=== PATIENT | male | born 1975 | race Caucasian/White ===

== ENCOUNTER 2017-04-25 21:39 | Emergency (ER) | payer SELFPAY ==
[~2017-04-25] VITALS: Ht 193 cm; Wt 77.3 kg
[~2017-04-25 21:39] MED LIST: PRILOTC PO; PRINIVIL10 MG PO; PROMETHAZINE12.5 M5 PO; ZOFRAN 4MG T4 MG/TAB PO
[2017-04-25 21:41] VITALS: TEMP 98
[2017-04-25] MEDS ORDERED: ZESTORETIC 25 M1 TAB PO (21:44)
[2017-04-25] MEDS ORDERED: XANAX 0.5MG0.5 MG PO (21:44)
[2017-04-25 22:13] LABS: BASO % 0.4 % (0.0-2.0); EOS % 0.3 % (0-4.0); GRAN # 7.5 (1.4-6.5); GRAN % 67.5 % (42.2-75.2); HEMATOCRIT 44.6 % (42.0-52.0); HEMOGLOBIN 15.9 g/dl (13.5-18.0); LYMPH % 26.6 % (20.0-51.0); MEAN CELL VOLUME 88 fl (80.0-100.0); MEAN CORPUSCULAR HEMOGLOBIN 32 pg (27.0-31.0); MEAN CORPUSCULAR HGB CONC 36 g/dl (33.0-37.0); MEAN PLATELET VOLUME 9.2 fl (7.4-10.4); MONO # 0.5 (0.1-0.6); MONO % 4.8 % (1.7-9.3); PLATELET COUNT 299 K/mm3 (130-400); RED BLOOD COUNT 5.05 M/mm3 (4.20-5.60); REDCELL DISTRIBUTION WIDTH-CV 12.6 % (11.5-14.5); WHITE BLOOD COUNT 11.2 K/mm3 (4.8-10.8)
[2017-04-25 22:29] LABS: ADJUSTED CALCIUM 9.5 mg/dL (8.4-10.2); ALBUMIN 4.8 gm/dL (3.5-5.0); BILIRUBIN,TOTAL 0.5 mg/dL (0.0-1.0); CALCIUM 10.1 mg/dL (8.4-10.2); CREATININE, serum 0.78 mg/dL (0.66-1.25); POTASSIUM 3.6 mmol/L (3.4-5.0); TOTAL PROTEIN 7.8 gm/dL (6.4-8.2)
[2017-04-25] MEDS ORDERED: PHENERGAN 25 TA25 MG PO (22:48)
[2017-04-26 00:27] VITALS: BP 159/102; PULSE 82
== END 2017-04-26 00:28 | disposition home or self-care (01) ==
LOC: COL.ER 21:39
PROVIDERS: Emergency Medicine
DX: F11.23 Opioid dependence with withdrawal (principal); E86.9 Volume depletion, unspecified
CPT/HCPCS: J1885; J2060; J2405; J2550; J7030

== ENCOUNTER 2017-05-02 17:13 | Emergency (ER) | payer SELFPAY ==
[~2017-05-02] VITALS: Ht 182.9 cm; Wt 75.0 kg
[~2017-05-02 17:13] MED LIST changes: +PHENERGAN 25 TA25 MG PO; +XANAX 0.5MG0.5 MG PO; +ZESTORETIC 25 M1 TAB PO
[2017-05-02 17:24] VITALS: TEMP 99.2
[2017-05-02] MEDS ORDERED: ZOFRAN8 MG PO (17:27)
[2017-05-02 18:06] LABS: BASO % 0.2 % (0.0-2.0); EOS # 0.1 (0.0-0.7); EOS % 0.4 % (0-4.0); GRAN % 66.1 % (42.2-75.2); HEMATOCRIT 44.1 % (42.0-52.0); HEMOGLOBIN 16.1 g/dl (13.5-18.0); LYMPH # 3.5 (1.2-3.4); MEAN CELL VOLUME 88 fl (80.0-100.0); MEAN CORPUSCULAR HEMOGLOBIN 32 pg (27.0-31.0); MEAN CORPUSCULAR HGB CONC 37 g/dl (33.0-37.0); MEAN PLATELET VOLUME 9.5 fl (7.4-10.4); PLATELET COUNT 320 K/mm3 (130-400); RED BLOOD COUNT 5.03 M/mm3 (4.20-5.60); REDCELL DISTRIBUTION WIDTH-CV 12.2 % (11.5-14.5); WHITE BLOOD COUNT 13.6 K/mm3 (4.8-10.8)
[2017-05-02 18:26] LABS: ADJUSTED CALCIUM 9.6 mg/dL (8.4-10.2); ALANINE AMINOTRANSFERASE 21 U/L (21-72); ALBUMIN 4.7 gm/dL (3.5-5.0); ALKALINE PHOSPHATASE 86 U/L (50-136); ANION GAP 17 mmol/L (7-16); BILIRUBIN,TOTAL 0.7 mg/dL (0.0-1.0); BLOOD UREA NITROGEN 18 mg/dL (9-20); CALCIUM 10.2 mg/dL (8.4-10.2); CARBON DIOXIDE 21 mmol/L (22-30); CHLORIDE 97 mmol/L (98-107); GLUCOSE 109 mg/dL (74-106); LIPASE 87 U/L (23-300); POTASSIUM 3.1 mmol/L (3.4-5.0); SODIUM 135 mmol/L (137-145); TOTAL PROTEIN 7.9 gm/dL (6.4-8.2)
[2017-05-02 18:27] LABS: C-REACTIVE PROTEIN < 0.5 mg/dL (0.0-0.9)
[2017-05-02 19:47] LABS: PH 5 (5-8); SQUAMOUS EPITHELIAL 0-2 /hpf; URINE APPEARANCE Clear; URINE BACTERIA None Seen /hpf; URINE BILIRUBIN Negative (NEGATIVE); URINE BLOOD Negative (NEGATIVE); URINE COLOR Yellow; URINE GLUCOSE Negative (NEGATIVE); URINE KETONE Negative (NEGATIVE); URINE RBC 0-2 /hpf; URINE UROBILINOGEN Negative (NEGATIVE); URINE WBC 0-2 /hpf
[2017-05-02] MEDS ORDERED: CARAFATE S1 GM/10 ML PO (20:46)
[2017-05-02] MEDS ORDERED: K-DUR 10 MEQ T10 MEQ PO (20:47)
[2017-05-02 21:31] VITALS: BP 134/91; PULSE 94
== END 2017-05-02 21:31 | disposition home or self-care (01) ==
LOC: COL.ER 17:13
PROVIDERS: Emergency Medicine
DX: R10.10 Upper abdominal pain, unspecified (principal); F11.23 Opioid dependence with withdrawal
CPT/HCPCS: C9113; J1200; J1630; J3475; J7030; Q9967

== ENCOUNTER → 2021-02-24 | Outpatient (CLI) | payer MEDICAID ==
[~2021-02-24] MED LIST changes: +ATIVAN 0.50.5 MG/TAB PO; +CARAFATE S1 GM/10 ML PO; +CLEOCIN HCL300 MG PO; +CORDARONE200 MG/TAB PO; +DOXYCYCLINE 10100 MG PO; +ELIQUIS 5MG PO; +INCRUSE EL62.5 MCG/A IH; +K-DUR 10 MEQ T10 MEQ PO; +LIDODERM 5% PATC1 EA TP; +MASON NATURAL2000 IU PO; +NORCO 325 MG-51 TAB PO; +PREDNISONE20 MG PO; +PREDNISONE50 MG PO; +PROAIR HFA0.09 MG/AC IH; +ULTRAM 50MG TAB50 MG PO; +VITAMIN D31000 I1 PO; +ZESTRIL 20MG TA20 MG PO; +ZOFRAN8 MG PO; +ZYRTEC 10MG10 MG PO
== END ==
LOC: COL.RAD 12:56
DX: J18.1 Lobar pneumonia, unspecified organism (principal); R04.2 Hemoptysis; R91.8 Other nonspecific abnormal finding of lung field; R59.0 Localized enlarged lymph nodes
CPT/HCPCS: Q9967

== ENCOUNTER 2021-03-05 06:39 | Outpatient (CLI) | payer MEDICAID ==
[2021-03-05] VITALS (15 sets, daily range): BP systolic 114–143; BP diastolic 64–97; PULSE 95–117
[~2021-03-05] VITALS: Ht 182.9 cm; Wt 82.2 kg
[~2021-03-05 06:39] MED LIST changes: -ATIVAN 0.50.5 MG/TAB PO; -CLEOCIN HCL300 MG PO; -CORDARONE200 MG/TAB PO; -DOXYCYCLINE 10100 MG PO; -ELIQUIS 5MG PO; -INCRUSE EL62.5 MCG/A IH; -LIDODERM 5% PATC1 EA TP; -MASON NATURAL2000 IU PO; -NORCO 325 MG-51 TAB PO; -PREDNISONE20 MG PO; -PREDNISONE50 MG PO; -PROAIR HFA0.09 MG/AC IH; -VITAMIN D31000 I1 PO; -ZYRTEC 10MG10 MG PO
--- NOTE | 2021-03-05 08:30 | NUR ---
Dr Samuel into room and talks with pt. Procedure explained to pt.
--- NOTE | 2021-03-05 08:38 | NUR ---
Specimen obtained by Dr Samuel and placed in formalin. Specimen labeled.
--- NOTE | 2021-03-05 11:13 | NUR ---
Chest xray completed,will away for results.
--- NOTE | 2021-03-05 11:51 | NUR ---
Discharge instructions given to pt.pt verbalizes understanding.INT removed,catheter tip intact.Pt escorted out via wheelchair by Dain Wells.
== END 2021-03-05 15:25 ==
LOC: COL.RAD 06:39
DX: J93.9 Pneumothorax, unspecified (principal); R91.1 Solitary pulmonary nodule; F17.210 Nicotine dependence, cigarettes, uncomplicated
CPT/HCPCS: 32106

== ENCOUNTER 2021-04-19 09:38 | Emergency (ER) | payer MEDICAID ==
[~2021-04-19] VITALS: Ht 182.9 cm; Wt 79.5 kg
[2021-04-19 09:46] VITALS: TEMP 98.4
[2021-04-19 10:36] LABS: COLLECTION METHOD CLEAN CATCH
[2021-04-19 10:38] LABS: BASO % 0.5 % (0.0-2.0); EOS % 0.5 % (0-4.0); GRAN # 3.3 (1.4-6.5); GRAN % 76.2 % (42.2-75.2); HEMATOCRIT 37.7 % (42.0-52.0); HEMOGLOBIN 12.7 g/dl (13.5-18.0); LYMPH # 0.6 (1.2-3.4); LYMPH % 14.1 % (20.0-51.0); MEAN CELL VOLUME 85 fl (80.0-100.0); MEAN CORPUSCULAR HEMOGLOBIN 29 pg (27.0-31.0); MEAN CORPUSCULAR HGB CONC 34 g/dl (33.0-37.0); MEAN PLATELET VOLUME 8.6 fl (7.4-10.4); MONO # 0.4 (0.1-0.6); MONO % 8.5 % (1.7-9.3); PLATELET COUNT 176 K/mm3 (130-400); RED BLOOD COUNT 4.46 M/mm3 (4.20-5.60); REDCELL DISTRIBUTION WIDTH-CV 15.7 % (11.5-14.5)
[2021-04-19 10:52] LABS: MUCOUS Present /lpf; PH 5 (5-8); SQUAMOUS EPITHELIAL 0-2 /hpf; URINE APPEARANCE Hazy; URINE BACTERIA None Seen /hpf; URINE BILIRUBIN Negative (NEGATIVE); URINE BLOOD Negative (NEGATIVE); URINE COLOR Yellow; URINE GLUCOSE Negative (NEGATIVE); URINE KETONE 1+ (NEGATIVE); URINE LEUKOCYTE ESTERASE Negative (NEGATIVE); URINE NITRATE Negative (NEGATIVE); URINE PROTEIN(semi-quant) Negative (NEGATIVE); URINE RBC 0-2 /hpf; URINE UROBILINOGEN Negative (NEGATIVE)
[2021-04-19 10:55] LABS: ALANINE AMINOTRANSFERASE 82 U/L (4-49); ALBUMIN 3.7 gm/dL (3.5-5.0); ALKALINE PHOSPHATASE 224 U/L (50-136); ANION GAP 7 mmol/L (7-16); AST,SGOT 80 U/L (15-37); BILIRUBIN,TOTAL 0.2 mg/dL (0.0-1.0); BLOOD UREA NITROGEN 4 mg/dL (9-20); CALCIUM 9.1 mg/dL (8.4-10.2); CARBON DIOXIDE 25 mmol/L (22-30); CHLORIDE 96 mmol/L (98-107); GLUCOSE 96 mg/dL (74-106); SODIUM 128 mmol/L (137-145); TOTAL PROTEIN 7.4 gm/dL (6.4-8.2)
[2021-04-19 11:09] LABS: TROPONIN-I < 0.012 ng/mL (0.000-0.035)
[2021-04-19 11:19] LABS: HIV 1/2 Antibodies Non-Reactive; HIV-1p24 Antigen Non-Reactive
[2021-04-19] MEDS ORDERED: PREDNISONE50 MG PO (11:50)
[2021-04-19] MEDS ORDERED: DOXYCYCLINE 10100 MG PO (11:51)
[2021-04-19 12:01] VITALS: BP 148/107; PULSE 107
[2021-04-21 23:50] LABS: SPOTTED FEVER IGG ANTIBODY <1:64 (<1:64)
== END 2021-04-19 12:05 | disposition home or self-care (01) ==
LOC: COL.ER 09:38
PROVIDERS: Emergency Medicine
DX: J18.9 Pneumonia, unspecified organism (principal); R21 Rash and other nonspecific skin eruption; D72.819 Decreased white blood cell count, unspecified; F17.200 Nicotine dependence, unspecified, uncomplicated; Z20.822 Contact with and (suspected) exposure to COVID-19
CPT/HCPCS: 86780; J0696; J2930

== ENCOUNTER 2021-05-24 19:36 | Inpatient (IN) | payer MEDICAID ==
[2021-05-24] VITALS (15 sets, daily range): BP systolic 133; BP diastolic 109; PULSE 151; TEMP 97.7; O2SAT 99–100
[~2021-05-24] VITALS: Ht 185.4 cm; Wt 80.4 kg
[~2021-05-24 19:36] MED LIST changes: +DOXYCYCLINE 10100 MG PO; +PREDNISONE50 MG PO
[2021-05-24 19:52] LABS: BASO % 0.1 % (0.0-2.0); GRAN # 6.1 (1.4-6.5); GRAN % 74.3 % (42.2-75.2); HEMATOCRIT 40.5 % (42.0-52.0); HEMOGLOBIN 13.4 g/dl (13.5-18.0); LYMPH # 1.3 (1.2-3.4); LYMPH % 15.5 % (20.0-51.0); MEAN CELL VOLUME 89 fl (80.0-100.0); MEAN CORPUSCULAR HEMOGLOBIN 30 pg (27.0-31.0); MEAN CORPUSCULAR HGB CONC 33 g/dl (33.0-37.0); MEAN PLATELET VOLUME 8.9 fl (7.4-10.4); MONO # 0.8 (0.1-0.6); MONO % 9.2 % (1.7-9.3); PLATELET COUNT 305 K/mm3 (130-400); RED BLOOD COUNT 4.55 M/mm3 (4.20-5.60); REDCELL DISTRIBUTION WIDTH-CV 17.9 % (11.5-14.5)
[2021-05-24 20:05] LABS: ALANINE AMINOTRANSFERASE 57 U/L (4-49); ALBUMIN 3.9 gm/dL (3.5-5.0); ALKALINE PHOSPHATASE 146 U/L (50-136); ANION GAP 14 mmol/L (7-16); AST,SGOT 60 U/L (15-37); BILIRUBIN,TOTAL 0.3 mg/dL (0.0-1.0); BLOOD UREA NITROGEN 8 mg/dL (9-20); CALCIUM 9.3 mg/dL (8.4-10.2); CARBON DIOXIDE 20 mmol/L (22-30); CHLORIDE 94 mmol/L (98-107); CREATININE, serum 0.65 (0.66-1.25); GLUCOSE 196 mg/dL (74-106); SODIUM 128 mmol/L (137-145); TOTAL PROTEIN 7.7 gm/dL (6.4-8.2)
[2021-05-24 20:20] LABS: CREATINE KINASE 28 U/L (55-170); LIPASE 110 U/L (23-300)
[2021-05-24 20:21] LABS: TROPONIN-I < 0.012 ng/mL (0.000-0.035)
[2021-05-24] MEDS ORDERED: VITAMIN D31000 I1 PO (21:44)
[2021-05-24] MEDS ORDERED: PREDNISONE20 MG PO (21:44)
[2021-05-24] MEDS ORDERED: ZYRTEC 10MG10 MG PO (21:45)
[2021-05-24] MEDS ORDERED: MASON NATURAL2000 IU PO (21:45)
--- NOTE | 2021-05-24 22:08 | NUR ---
Received report from ED nurse, Ana.
[2021-05-24 22:12] LABS: MAGNESIUM 1.7 mg/dL (1.6-2.3); PHOSPHOROUS 4.3 mg/dL (2.5-4.5)
--- NOTE | 2021-05-24 22:54 | NUR ---
Patient arrives to ICU room 6 via ED stretcher. Patient is able to ambulate independently to ICU bed. Patient is alert and oriented. HR is irregular and 160s upon arrival. BP 133/109. All other vitals within normal limits. Patient denies any pain or discomfort. He does however, report feeling slightly dizzy. Patient denies feeling short of breath. He is somewhat tachypneic but does not appear to be in any sort of respiratory distress or discomfort. A red splotchy rash is noted to his entire body. No other skin issues noted. He arrives with an 18G peripheral IV to the RAC, receiving amiodarone at 1mg/min. He also has a 20G peripheral to the LAC, receiving heparin at 1500 units/hr. Saloni is aware of patient's arrival. Bed in lowest position, call light within reach. All alarms on. No further needs noted.
--- NOTE | 2021-05-24 22:54 | NUR ---
Patient's belongings include street clothes, a cell phone, glasses, and a wallet without nix. He denies having dentures, partials, plates, hearing aids, or removable jewelry on his person. Refuses use of safe when offered. Belongings at patient's bedside per his request.
[2021-05-24 23:55] LABS: TSH w REFLEX 0.596 uIU/mL (0.465-4.680)
[2021-05-25] VITALS (649 sets, daily range): BP systolic 114–170; BP diastolic 71–113; PULSE 80–141; TEMP 97.5–98.1; O2SAT 90–100
[2021-05-25 06:22] LABS: EOS % 0.1 % (0-4.0); GRAN # 5.4 (1.4-6.5); GRAN % 78.2 % (42.2-75.2); HEMOGLOBIN 12.2 g/dl (13.5-18.0); MEAN CELL VOLUME 90 fl (80.0-100.0); MEAN CORPUSCULAR HEMOGLOBIN 30 pg (27.0-31.0); MEAN CORPUSCULAR HGB CONC 33 g/dl (33.0-37.0); MEAN PLATELET VOLUME 8.6 fl (7.4-10.4); MONO # 0.4 (0.1-0.6); PLATELET COUNT 273 K/mm3 (130-400); RED BLOOD COUNT 4.08 M/mm3 (4.20-5.60); REDCELL DISTRIBUTION WIDTH-CV 18.4 % (11.5-14.5)
[2021-05-25 06:25] LABS: HEMATOCRIT 36.9 % (42.0-52.0)
[2021-05-25 06:43] LABS: CALCIUM 8.6 mg/dL (8.4-10.2); CREATININE, serum 0.54 (0.66-1.25); POTASSIUM 4.5 mmol/L (3.4-5.0)
[2021-05-25 10:04] LABS: LACTATE DEHYDROGENASE 416 U/L (313-618)
[2021-05-25 10:08] LABS: C-REACTIVE PROTEIN < 0.5 mg/dL (0.0-0.9)
--- NOTE | 2021-05-25 11:35 | NUR ---
Patient self-converted to . Dr. Kinsey at bedside performing a KEITH. Cardioversion not needed at this time.
--- NOTE | 2021-05-25 12:28 | NUR ---
Discussed plan of care with DENIS Gambino. Will continue IV amiodarone for 24 hrs. Will switch to PO this evening and can stop heparin drip and start eliquis. Also discussed patient's elvevated BP's. Ranging 150-160 systolic and 100-110 diastolic. DENIS Gambino will review the chart at this time.
--- NOTE | 2021-05-25 14:09 | NUR ---
Vancomycin Initial Dosing Pharmacy Note Ordering provider: Teodora Lakhani MD Indication/duration: PNA, 7 days LABS: SCr 0.54, CrCl~163, GFR 166 Recommendation: Will give Vancomycin 1.5 gm IV x1 loading dose, then Vancomycin 1 gm IV q8h. Pharmacy will continue to closely monitor and check a Vancomycin trough on 05/26/21 prior to 4th total dose. Loading dose: 1.5 grams Maintenance dose: 1 gram every 8 hours Trough goal: 15-20 ug/mL
--- NOTE | 2021-05-25 19:10 | NUR ---
Received report from LESLIE Jerome.
--- NOTE | 2021-05-25 20:00 | NUR ---
Patient resting quietly in bed watching television. All vitals within normal limits. Denies pain, discomfort, or shortness of breath. Bed in lowest position, call light within reach. All alarms on. No further needs noted.
--- NOTE | 2021-05-25 23:15 | NUR ---
Report given to LESLIE Lugo.
--- NOTE | 2021-05-25 23:31 | NUR ---
Patient transported via wheelchair to room 342. Tolerated well. Contact made with receiving nurseParish.
[2021-05-26] VITALS (10 sets, daily range): BP systolic 94–177; BP diastolic 63–115; PULSE 77–108; TEMP 97.5–98
[2021-05-26 00:31] LABS: COMPLEMENT-C4 23 mg/dL (15-53)
--- NOTE | 2021-05-26 03:24 | NUR ---
Pt got transfered to surgical unit. currently on airbone precaution. BP is eleveted. Hydralazine was given. IV fluid on hold nicho was notified. Will continue to monitor.
--- NOTE | 2021-05-26 07:25 | NUR ---
Report received from Parish. Pt. on airborne precautions. Pt. OOB in chair. This RN waved to patient, through window on door. Pt. waved back. Will go assess pt. this AM when N95 Mask is obtained for pt.'s precautions.
[2021-05-26 07:54] LABS: EOS % 0.1 % (0-4.0); GRAN # 6.5 (1.4-6.5); HEMOGLOBIN 11.5 g/dl (13.5-18.0); LYMPH # 1.5 (1.2-3.4); LYMPH % 16.2 % (20.0-51.0); MEAN CELL VOLUME 92 fl (80.0-100.0); MEAN CORPUSCULAR HEMOGLOBIN 30 pg (27.0-31.0); MEAN CORPUSCULAR HGB CONC 33 g/dl (33.0-37.0); MONO % 10.7 % (1.7-9.3); PLATELET COUNT 252 K/mm3 (130-400); RED BLOOD COUNT 3.84 M/mm3 (4.20-5.60); REDCELL DISTRIBUTION WIDTH-CV 18.4 % (11.5-14.5)
[2021-05-26 07:56] LABS: HEMATOCRIT 35.3 % (42.0-52.0)
[2021-05-26 08:06] LABS: CALCIUM 8.9 mg/dL (8.4-10.2); CREATININE, serum 0.66 (0.66-1.25); MAGNESIUM 2.3 mg/dL (1.6-2.3); POTASSIUM 3.5 mmol/L (3.4-5.0)
--- NOTE | 2021-05-26 09:00 | NUR ---
Pt. progressing w/ plan of care. Pt. reports he had a rough night and he is nervous with the plan of care. This RN offered therapeutic communication and reassured patient he would be in the loop with the plan for the day. BP elevated, BP meds to be given per order. Call light in reach, pt. reports he has been getting out of bed on his own and reports he has been steady on his feet.
--- NOTE | 2021-05-26 13:31 | NUR ---
Pt. progressing with plan of care. Pt to get an epsom salt sitz bath per CHANDRAKANT Naylor order. Pt reports his rectum is having pain. Pt. was given hydrocortisone suppository with no effect. Abx administered per order, vanco to be given, reviewed with Pharmacist Gunjan to continue scheduled dose after new vanco trough has resulted. Plan for pt. to have a biopsy of the lung tomorrow at 1030 AM. LESLIE Cole notified this RN to get a consent prepared so the patient can have procedure tomorrow.
--- NOTE | 2021-05-26 17:07 | NUR ---
Patient is in isolation to rule out TB. Worker contacted Shmuel Wheeler, who is patient's life partner that has moved out of his house, however, continues to be patient's support person. Patient has been independent with his activities of daily living and his primary care provider is Dr Quintero. Patient does not have any advance directives and worker offered assistance with completion if desired by patient. Patient plans to return home. Worker will follow patient's care and assist with securing a safe discharge plan.
[2021-05-26 17:15] LABS: TB GOLD INTERPRETATION Indeterminate (Negative)
--- NOTE | 2021-05-26 19:05 | NUR ---
Pt. angry his dinner was cold. Charge nurse Lynn notified as well as correctional food service supervisor.
[2021-05-27] VITALS (19 sets, daily range): BP systolic 126–166; BP diastolic 84–113; PULSE 76–127; TEMP 97.5–98.1
--- NOTE | 2021-05-27 01:56 | NUR ---
Pt has been pretty grumpy all evening. He was mad about his food being cold.I offered him a sandwish, he agreed to eat. Pt said , he has visual hallucination and has been trying to go to sleep but he feels like he is falling of the bed. He also compalined about his rash is coming back and his maouth is burning. I called Corine, she ut a order for benadryl and miracle mouth wash. I later called Corine for pt hallucination, She put an other order of quetiapine 25 mg po. Will continue to monitor.
--- NOTE | 2021-05-27 07:00 | NUR ---
Report received from LESLIE Lugo. Will resume care of pt
[2021-05-27 08:04] LABS: GRAN % 61.5 % (42.2-75.2); HEMOGLOBIN 10.4 g/dl (13.5-18.0); LYMPH # 1.7 (1.2-3.4); LYMPH % 26.1 % (20.0-51.0); MEAN CELL VOLUME 92 fl (80.0-100.0); MEAN CORPUSCULAR HEMOGLOBIN 31 pg (27.0-31.0); MEAN CORPUSCULAR HGB CONC 33 g/dl (33.0-37.0); MEAN PLATELET VOLUME 9.3 fl (7.4-10.4); MONO # 0.8 (0.1-0.6); MONO % 11.8 % (1.7-9.3); PLATELET COUNT 228 K/mm3 (130-400); REDCELL DISTRIBUTION WIDTH-CV 18.2 % (11.5-14.5)
--- NOTE | 2021-05-27 08:04 | NUR ---
Assessment hcarted. pT c/o pain to rectum at 6/10 that is intermittent. pT c/o worsening rash to whole body, red everywhere and picture shown on phone of rash at its worst in past and its very red, raised and blistery. Pt orally has white spots in mouth, back is most reddened, skin is not warm or raised just diffusely red. Pt lungs are coarse with ins/exp wheezing in upper lobes. Pt reports smokes 2 packs/day. INT to RW and RA/C. Coughing intermittently with scant amoutn of white/brown sputum. Discussed detox protocol and ativan coverage. Will discuss with director pt request to talk to cured meats supervisor about complaints of care, will address with hospitalist request for pain meds, will continue to monitor.
[2021-05-27 08:17] LABS: CALCIUM 8.4 mg/dL (8.4-10.2); CREATININE, serum 0.73 (0.66-1.25); POTASSIUM 3.4 mmol/L (3.4-5.0)
[2021-05-27 08:28] LABS: ALBUMIN 2.9 gm/dL (3.5-5.0); BILIRUBIN,TOTAL 0.2 mg/dL (0.0-1.0); TOTAL PROTEIN 5.9 gm/dL (6.4-8.2)
[2021-05-27 08:38] LABS: HEMATOCRIT 31.3 % (42.0-52.0)
--- NOTE | 2021-05-27 13:45 | NUR ---
Pt transported per bed to ct. Pt in protective mask and cover over pt. Nurse and tech in full PPE with N95 mask. Pt onto ct table in prone position. Monitors applied.
--- NOTE | 2021-05-27 14:00 | NUR ---
Dr Wright into room to talk with pt. Full ppe with N95 masks used by all staff in ct scan room.
--- NOTE | 2021-05-27 14:11 | NUR ---
Specimens obtained by Dr Wright and placed in formalin. Specimen labeled.
--- NOTE | 2021-05-27 18:42 | NUR ---
Pt has done well today, remains on CIWA protocol, vitals have improved this evening and pt states he is feeling much better. Resting in bed, sleeping soundly upon entry this evening for the first time this shift. PRN pain meds given for generalized pain from rash and rectum. Family at bedside this afternoon and confirmed with Optical Engineering Manager this was okay to have visitor in [place] isolation. INT to RA/C removed d/t bleeding but INT to RH is doing fine. Pt denies need,s ate supper well, anticipating bronchoscopy on tuesday. [facility] who will resume care.
--- NOTE | 2021-05-27 20:23 | NUR ---
PT IN BED, IS ALERT AND ORIENTED X4. HAS IV ANTIBIOTIC THAT IS COMPLETE, FLUSHED AT THIS TIME, SITE TO RT HAND LEAKING. MEDICATED WITH ATIVAN 1MG IVP FOR CIWA SCORE 6. INDEPENDENT IN ROOM. LUNGS COARSE. BANDAID PRESENT TO LEFT BACK FROM LUNG BX TODAY. FADING RASH OVER ENTIRE BODY.
[2021-05-27 22:40] LABS: C-ANCA 23 U/mL (0-99)
--- NOTE | 2021-05-27 22:40 | NUR ---
DC'D IV SITE FROM RT HAND, STARTED #2O INSYTE TO RFA, IV ATIVAN GIVEN 0.5MG FOR CIWA SCORE 5. VANCOMYCIN INFUSING TO NEW IV SITE WITHOUT REDNESS OR SWELLING.
[2021-05-28] VITALS (12 sets, daily range): BP systolic 122–151; BP diastolic 87–101; PULSE 70–102; TEMP 97.1–98.5
--- NOTE | 2021-05-28 02:27 | NUR ---
PT CIWA SCORE 6, MEDICATED WITH ATIVAN 1MG IVP, CLEOCIN IV ANTIBIOTIC STARTED AT THIS TIME.
--- NOTE | 2021-05-28 06:00 | NUR ---
PT REPORTS RESTING WELL. CIWA SCORE 2. IV ANTIBIOTIC INFUSING TO RIGHT FOREARM WITHOUT PROBLEM.
[2021-05-28 07:21] LABS: EOS % 0.3 % (0-4.0); GRAN # 3.5 (1.4-6.5); GRAN % 58.6 % (42.2-75.2); HEMOGLOBIN 10.6 g/dl (13.5-18.0); LYMPH # 1.9 (1.2-3.4); LYMPH % 30.9 % (20.0-51.0); MEAN CELL VOLUME 91 fl (80.0-100.0); MEAN CORPUSCULAR HEMOGLOBIN 30 pg (27.0-31.0); MEAN CORPUSCULAR HGB CONC 33 g/dl (33.0-37.0); MEAN PLATELET VOLUME 9.2 fl (7.4-10.4); MONO # 0.6 (0.1-0.6); MONO % 9.5 % (1.7-9.3); PLATELET COUNT 222 K/mm3 (130-400); REDCELL DISTRIBUTION WIDTH-CV 17.9 % (11.5-14.5)
[2021-05-28 07:25] LABS: CALCIUM 8.2 mg/dL (8.4-10.2); CREATININE, serum 0.7 (0.66-1.25); POTASSIUM 3.4 mmol/L (3.4-5.0)
--- NOTE | 2021-05-28 18:33 | NUR ---
Pt has had uneventful day, A&O, independent in room, on room air. Breathing is even and unlabored, pt denies SOB, states he has had minimal cough with minimal sputum, none visualized by this nurse. Abx given per mar throughout day. Pt c/o of some pain to Lt sd from biopsy 05/27/21, pain medication given per dec. RFA IV infiltrated, removed, new site started to LWR, good blood return and flushes well. K+ replaced per protocol. Pt has good appetite and tolerating PO well. No further needs expressed. Precautions followed per order.
--- NOTE | 2021-05-28 19:50 | NUR ---
PT REPORTS BACK PAIN, TRAMADOL GIVEN. HAS IV ANTIBIOTIC INFUSING TO LEFT WRIST WITHOUT REDNESS OR SWELLING. LUNGS SOUNDS IMPROVED TONIGHT. INDEPENDENT IN ROOM. THIN YELLOW SPUTUM COUGHED UP. SIGNS CONSENT FOR BRONCHOSCOPY IN AM.
[2021-05-29] VITALS (16 sets, daily range): BP systolic 112–148; BP diastolic 79–101; PULSE 64–94; TEMP 97.8–98.5
--- NOTE | 2021-05-29 00:30 | NUR ---
CIWA SCORE 2-3. PT WAS GIVEN MELATONIN AT HS FOR SLEEP. IV SITE FLUSHED WELL.
--- NOTE | 2021-05-29 04:00 | NUR ---
IV ANTIBIOTICS CONNECTED AND INFUSING TO LEFT WRIST SITE WITHOUT REDNESS OR SWELLING. REPORTS BACK PAIN. CIWA SCORE 2.
--- NOTE | 2021-05-29 04:31 | NUR ---
MEDICATED WITH TRAMDOL 50MG PO FOR BACK PAIN. IV VANCO INFUSING WITHOUT PROBLEM.
--- NOTE | 2021-05-29 05:45 | NUR ---
PT IV SITE TO LEFT WRIST PAINFUL. DC'D. NEW SITE STARTED TO RIGHT FOREARM, #20 INSYTE ON SECOND ATTEMPT. PATIENT NERVOUS ABOUT BRONCHOSCOPY TODAY, REASSURANCE PROVIDED.
[2021-05-29 07:00] LABS: BASO % 0.2 % (0.0-2.0); EOS % 0.5 % (0-4.0); GRAN # 3.7 (1.4-6.5); GRAN % 58.6 % (42.2-75.2); HEMOGLOBIN 10.7 g/dl (13.5-18.0); LYMPH # 1.7 (1.2-3.4); LYMPH % 26.6 % (20.0-51.0); MEAN CELL VOLUME 91 fl (80.0-100.0); MEAN CORPUSCULAR HEMOGLOBIN 30 pg (27.0-31.0); MEAN CORPUSCULAR HGB CONC 33 g/dl (33.0-37.0); MEAN PLATELET VOLUME 8.8 fl (7.4-10.4); MONO # 0.8 (0.1-0.6); MONO % 13.1 % (1.7-9.3); PLATELET COUNT 202 K/mm3 (130-400); RED BLOOD COUNT 3.57 M/mm3 (4.20-5.60); REDCELL DISTRIBUTION WIDTH-CV 17.7 % (11.5-14.5)
[2021-05-29 07:07] LABS: HEMATOCRIT 32.4 % (42.0-52.0)
[2021-05-29 07:16] LABS: CALCIUM 8.8 mg/dL (8.4-10.2); CREATININE, serum 0.7 (0.66-1.25); POTASSIUM 3.7 mmol/L (3.4-5.0)
--- NOTE | 2021-05-29 08:00 | NUR ---
PATIENT ALERT AND ORIENTED X4. STATES HE IS FEELING BETTER AND SLEPT GOOD LAST NIGHT. PATIENT ABOUT TO GO DOWN FOR BRONCOSCOPY. PATIENT NPO AND HAS 20G IV TO THE RIGHT FOREARM INT. PATIENT ON POTASSIUM PROTOCOL AND AIRBORNE PRECAUTIONS FOR PENDING TB RESULTS. NO FURTHER NEEDS AT THIS TIME. HEAD TO TOE ASSESSMENT COMPLETE. CALL LIGHT WITHIN REACH.
--- NOTE | 2021-05-29 09:10 | NUR ---
DR. HUTTON CALLED TO RESTART LOVENOX AT 10AM.
--- NOTE | 2021-05-29 09:15 | NUR ---
PATIENT RETURNED TO FLOOR AFTER BRONCOSCOPY. REPORT RECIEVED. VSS. LOVENOX TO START AGAIN AT 10AM PER DOCTORS ORDERS. POTASSIUM IS 3.7 AND WILL REQUIRE REPLACEMENT PER PROTOCOL. PATIENT HAS LR GOING TO RIGHT FOREARM IV. PATIENT DENIES PAIN OR N/V. NO FURTHER NEEDS AT THIS TIME. CALL LIGHT WITHIN REACH.
--- NOTE | 2021-05-29 14:25 | NUR ---
PATIENT LAYING IN BED AFTER EATING LUNCH. PATIENT DENIES PAIN OR FURTHER NEEDS AT THIS TIME. CALL LIGHT WITHIN REACH.
--- NOTE | 2021-05-29 20:00 | NUR ---
Report received, assume care for shift production associate. Assessment complete. VS stable. A&Ox3. Denies pain/nausea/shortness of breath. Tele reports NSR. Has tolerated PO. Voiding without difficulty. Currently on detox protocol but not scoring. States he would like ativan at bedtime due to anxiety. Will request new order for PRN anxiety med per hospitalist. Plan of care discussed for this shift to include HS meds/antibiotics/calling for questions/concerns/increased pain. Verbalizes understanding/denies needs. Call light in reach. Will monitor.
--- NOTE | 2021-05-29 21:30 | NUR ---
Ativan given per pt request for anxiety. Tramadol given per dr order for pain rated 6/10 to back-described as ache. Will continue to monitor.
[2021-05-30 03:53] VITALS: BP 120/75; PULSE 96; TEMP 98.2
--- NOTE | 2021-05-30 04:12 | NUR ---
Tramadol given at this time for pain rated 6/10 on pain scale to chest/"lungs".
--- NOTE | 2021-05-30 06:33 | NUR ---
Rested well this shift. Received tramadol x2 for pain in back. Tele reports SR. Received ativan x1 for anxiety. No real complaints over this shift. Call light in reach. Will monitor.
[2021-05-30 06:47] LABS: MEAN CELL VOLUME 92 fl (80.0-100.0); MEAN CORPUSCULAR HEMOGLOBIN 30 pg (27.0-31.0); MEAN CORPUSCULAR HGB CONC 33 g/dl (33.0-37.0); MEAN PLATELET VOLUME 9.1 fl (7.4-10.4); PLATELET COUNT 196 K/mm3 (130-400); RED BLOOD COUNT 3.31 M/mm3 (4.20-5.60); REDCELL DISTRIBUTION WIDTH-CV 17.6 % (11.5-14.5)
[2021-05-30 06:52] LABS: CALCIUM 8.6 mg/dL (8.4-10.2); CREATININE, serum 0.69 (0.66-1.25); POTASSIUM 3.7 mmol/L (3.4-5.0)
[2021-05-30 07:02] LABS: HEMATOCRIT 30.4 % (42.0-52.0)
--- NOTE | 2021-05-30 08:20 | NUR ---
Patient sitting up in bed. Alert & oriented. Reports pain in lungs from "lung washing" Ultram manages pain. Breakfast delivered. Denies nausea. Denies issues using the restroom, reports being regular. Vss, tele on. I did call pharmacy & discussed lovenox & eliquis orders-only eliquis given, lovenox held. Will continue to monitor.
[2021-05-30 09:50] VITALS: BP 131/93; PULSE 86; TEMP 98.2
--- NOTE | 2021-05-30 10:15 | NUR ---
Patient resting in bed. Hygiene supplies provided, denies the need for assist. Ultram for pain per orders. Spoke with hosptalist about patient, plan of care reviewed. Will continue to monitor.
[2021-05-30 13:35] VITALS: BP 123/82; PULSE 81; TEMP 98.7
[2021-05-30 14:05] LABS: BLASTOMYCES ID Negative (Negative); HISTOPLASMA ID Negative (Negative); HISTOPLASMA MYCELIAL Negative (Negative); HISTOPLASMA YEAST Negative (Negative)
--- NOTE | 2021-05-30 14:33 | NUR ---
Patient at bedside. Patient request anxiety medication. He is upset about his food tray being late, then upset about not having martínez & mustard. Patient upset his ice is melted. He reports feeling like he is in custodial. I spoke to Dr.Poturu JUGN ativan ordered. Patient hoping to discharge home on Tuesday. Will monitor.
[2021-05-30 16:00] VITALS: BP 117/81; PULSE 79; TEMP 98.1
--- NOTE | 2021-05-30 18:11 | NUR ---
Patient off isolation precautions. loading rack supervisor reviewed with Genna and with negative covid swab patient able to be off TB precautions. Patient so thankful for new room in 322, large room with a view. His mood is much improved. He did well with dinner. Denies cough. Will monitor. Patient aware he needs to be wearing mask when staff is in room and agreeable.
--- NOTE | 2021-05-30 19:02 | NUR ---
Iv to lfa infiltrated. Attempted x2 to restart, failed attempt. Elizabeth RN to resume cares & start new IV.
--- NOTE | 2021-05-30 19:24 | NUR ---
Report received, assumed care for observer gravity prospecting. Assessment complete. A&Ox3. Denies pain/nausea/shortness of breath. VS stable. No IV access-has been attempted several times-will see if casting house laborer would attempt. Noted to have a rash to trunk/back/arms bilat. Based on photograph on patients phone this rash has much improved but still visible. All lung andersen with wheezes. Denies cough. In much better spirits in new room. Plan of care discussed for this shift to include HS meds/IV restart/antibiotics/pain control/calling for questions/concerns. Verbalizes understanding/denies needs. Call light in reach. Will monitor.
[2021-05-30 20:00] VITALS: BP 143/93; PULSE 72; TEMP 97.8
[2021-05-31] VITALS (7 sets, daily range): BP systolic 116–137; BP diastolic 70–99; PULSE 58–77; TEMP 97.5–98.6
--- NOTE | 2021-05-31 04:04 | NUR ---
This nurse took over care for patient around 2229. Patient given PRN Ultram once for this nurse for pain to back. Continues to receive IV ABXs per orders. Voices no questions, needs, or concerns at this time.
[2021-05-31 09:10] LABS: BASO % 0.2 % (0.0-2.0); EOS % 0.3 % (0-4.0); GRAN # 6.6 (1.4-6.5); GRAN % 71.1 % (42.2-75.2); HEMOGLOBIN 10.8 g/dl (13.5-18.0); LYMPH # 1.6 (1.2-3.4); LYMPH % 17.1 % (20.0-51.0); MEAN CELL VOLUME 92 fl (80.0-100.0); MEAN CORPUSCULAR HEMOGLOBIN 30 pg (27.0-31.0); MEAN CORPUSCULAR HGB CONC 33 g/dl (33.0-37.0); MEAN PLATELET VOLUME 9.5 fl (7.4-10.4); MONO % 10.7 % (1.7-9.3); PLATELET COUNT 252 K/mm3 (130-400); RED BLOOD COUNT 3.58 M/mm3 (4.20-5.60); REDCELL DISTRIBUTION WIDTH-CV 17.7 % (11.5-14.5)
[2021-05-31 09:17] LABS: HEMATOCRIT 32.9 % (42.0-52.0)
[2021-05-31 09:26] LABS: CALCIUM 9.2 mg/dL (8.4-10.2); CREATININE, serum 0.65 (0.66-1.25); POTASSIUM 3.8 mmol/L (3.4-5.0)
[2021-05-31 12:12] LABS: COLLECTION METHOD CLEAN CATCH
[2021-05-31 12:17] LABS: PH 7 (5-8); SQUAMOUS EPITHELIAL None Seen /hpf; URINE APPEARANCE Clear; URINE BACTERIA None Seen /hpf; URINE BILIRUBIN Negative (NEGATIVE); URINE BLOOD Negative (NEGATIVE); URINE COLOR Yellow; URINE GLUCOSE Negative (NEGATIVE); URINE KETONE Negative (NEGATIVE); URINE LEUKOCYTE ESTERASE Negative (NEGATIVE); URINE NITRATE Negative (NEGATIVE); URINE PROTEIN(semi-quant) Negative (NEGATIVE); URINE RBC 0-2 /hpf; URINE UROBILINOGEN Negative (NEGATIVE); URINE WBC 0-2 /hpf
[2021-05-31 16:14] LABS: COCCIDIOIDES AB IGG Negative (Negative); COCCIDIOIDES AB IGM Negative (Negative); COCCIDIOIDES CF Negative (Negative)
--- NOTE | 2021-05-31 19:42 | NUR ---
Patient resting in bed. Aury is controling pain much better. Patient eating well. Denies trouble using the restroom. His visited this afternoon. Iv antibioitcs as ordered today. Report to Beatriz nightnurse.
--- NOTE | 2021-05-31 21:45 | NUR ---
PT REPORTS PAINFUL IV SITE. DC'D SITE FROM RT FOREARM, ANGIOCATH INTACT. RESTARTED #20 INSYTE TO LEFT WRIST ON FIRST ATTEMPT. VANCOMYCIN CONNECTED AND INFUSING WITHOUT PROBLEM. PT IS ALERT AND ORIENTED X4. PAIN TO LEFT BACK CONTROLLED WITH NORCO.
--- NOTE | 2021-05-31 22:30 | NUR ---
PT ASKING FOR ATIVAN FOR NERVES. MEDICATED WITH 0.5MG PO AT THIS TIME. SL TO LEFT WRIST FLUSHES WELL. INDEPENDENT IN ROOM.
[2021-06-01 03:45] VITALS: BP 122/74; PULSE 57; TEMP 98.6
--- NOTE | 2021-06-01 03:52 | NUR ---
MEDICATED WITH NORCO 1 TAB FOR BACK PAIN, ALSO HAS TURNED ON KPAD.
[2021-06-01 07:05] LABS: BASO % 0.1 % (0.0-2.0); EOS % 0.4 % (0-4.0); GRAN # 4.6 (1.4-6.5); GRAN % 63.3 % (42.2-75.2); HEMOGLOBIN 10.3 g/dl (13.5-18.0); LYMPH # 1.7 (1.2-3.4); LYMPH % 23.4 % (20.0-51.0); MEAN CELL VOLUME 94 fl (80.0-100.0); MEAN CORPUSCULAR HEMOGLOBIN 30 pg (27.0-31.0); MEAN CORPUSCULAR HGB CONC 32 g/dl (33.0-37.0); MEAN PLATELET VOLUME 9.6 fl (7.4-10.4); MONO # 0.9 (0.1-0.6); PLATELET COUNT 252 K/mm3 (130-400); RED BLOOD COUNT 3.48 M/mm3 (4.20-5.60)
[2021-06-01 07:06] LABS: HEMATOCRIT 32.6 % (42.0-52.0)
[2021-06-01 07:11] VITALS: BP 126/80; PULSE 61; TEMP 97.6
[2021-06-01 07:27] LABS: CALCIUM 9.3 mg/dL (8.4-10.2); CREATININE, serum 0.73 (0.66-1.25); POTASSIUM 3.8 mmol/L (3.4-5.0)
--- NOTE | 2021-06-01 08:33 | NUR ---
Patient resting in bed. Tolerated breakfast. Request pain medication when next dose due for continued pain in left lung. Pain the same, not new. We reviewed medications, he is hoping to decrease his predisone dosage today. We discuss with doctor on rounds
[2021-06-01 11:47] VITALS: BP 120/62; PULSE 69; TEMP 97.7
--- NOTE | 2021-06-01 13:36 | NUR ---
Initial visit; Patient thanked [employer] for looking in on him and offering God's blessings and to keep him in her prayers.
[2021-06-01 16:22] VITALS: BP 130/78; PULSE 79; TEMP 98.9
--- NOTE | 2021-06-01 17:41 | NUR ---
Patient resting in bed. Wanting to shower tonight after his antibiotic dose. Spoke to today. Patient now just on cleocin. rounded today plans for 2 view chest xray ordered for am. [place] for pain management. Will continue to monitor & report off to nightnurse.
--- NOTE | 2021-06-01 20:00 | NUR ---
PT TAKES OWN SHOWER. SL TO LEFT WRIST INTACT. IS ALERT AND ORIENTED X4. INDEPENDENT IN ROOM.
[2021-06-01 20:38] VITALS: BP 126/78; PULSE 50; TEMP 97.8
--- NOTE | 2021-06-01 22:28 | NUR ---
PT MEDICATED WITH HS MEDS INCLUDING NORCO AND ATIVAN PO.
[2021-06-02] VITALS (7 sets, daily range): BP systolic 110–128; BP diastolic 64–86; PULSE 53–75; TEMP 97.5–98.1
--- NOTE | 2021-06-02 04:45 | NUR ---
PT HAVING PAIN IN HIS BACK. VERY UNHAPPY WITH THE DOSE OF NORCO HE IS PRESCRIBED. PT STATES "ITS FUCKING STUPID TO HAVE TO WAIT 6 HOURS FOR NEXT PAIN MEDICATIONS, IF THEY DON'T DO SOMETHING I WILL HAVE TO GO HOME AND SELF MEDICATE". PT WAS GIVEN NORCO 5/325 1 TAB AT THIS TIME.
[2021-06-02 06:07] LABS: BASO % 0.1 % (0.0-2.0); EOS % 0.2 % (0-4.0); GRAN # 5.5 (1.4-6.5); GRAN % 61.8 % (42.2-75.2); HEMOGLOBIN 11.2 g/dl (13.5-18.0); LYMPH # 2.5 (1.2-3.4); LYMPH % 27.8 % (20.0-51.0); MEAN CELL VOLUME 95 fl (80.0-100.0); MEAN CORPUSCULAR HEMOGLOBIN 30 pg (27.0-31.0); MEAN CORPUSCULAR HGB CONC 31 g/dl (33.0-37.0); MEAN PLATELET VOLUME 9.3 fl (7.4-10.4); MONO # 0.9 (0.1-0.6); MONO % 9.5 % (1.7-9.3); PLATELET COUNT 315 K/mm3 (130-400); RED BLOOD COUNT 3.78 M/mm3 (4.20-5.60); REDCELL DISTRIBUTION WIDTH-CV 17.9 % (11.5-14.5)
[2021-06-02 06:17] LABS: HEMATOCRIT 35.8 % (42.0-52.0)
[2021-06-02 06:21] LABS: CALCIUM 9.6 mg/dL (8.4-10.2); CREATININE, serum 0.75 (0.66-1.25); POTASSIUM 3.4 mmol/L (3.4-5.0)
--- NOTE | 2021-06-02 11:54 | NUR ---
Patient alert and oriented, answers questions appropriately. See assessment. Lungs CTA. Heart tones strong and irregular, pulses palpable. Generalized faint, fine rashed noted over entire body. No c/o at this time.
[2021-06-02 15:11] LABS: ASPERGILLUS FLAVUS Negative (Neg:<1:1); ASPERGILLUS NIGER Negative (Neg:<1:1)
--- NOTE | 2021-06-02 21:00 | NUR ---
Pt. sitting up in bed at this time. Pt. is A&OX3, assessment complete. INT to lt. wrist patent. Pt. reports pain at a 5 on pain scale at this time. Pt. informed that would be able to have next pain pill around 2300. Pt. voices understanding.
[2021-06-03 04:09] VITALS: BP 11/69; BP 111/69; PULSE 50; TEMP 97.9
[2021-06-03 07:58] VITALS: BP 128/78; PULSE 73; TEMP 97.9
--- NOTE | 2021-06-03 09:34 | NUR ---
Patient alert and oriented, answers questions appropriate. See assessment. Lungs CTA, respers even and unlabored. Heart tones strong and even, pulses palpable. Ambulates independently in room. No c/o at this time.
[2021-06-03] MEDS ORDERED: INCRUSE EL62.5 MCG/A IH (09:43)
[2021-06-03] MEDS ORDERED: CLEOCIN HCL300 MG PO (09:43)
[2021-06-03] MEDS ORDERED: ELIQUIS 5MG PO (09:45)
[2021-06-03] MEDS ORDERED: PROAIR HFA0.09 MG/AC IH (09:45)
[2021-06-03] MEDS ORDERED: CORDARONE200 MG/TAB PO (09:46)
[2021-06-03] MEDS ORDERED: NORCO 325 MG-51 TAB PO (09:47)
[2021-06-03] MEDS ORDERED: LIDODERM 5% PATC1 EA TP (09:48)
[2021-06-03 12:17] VITALS: BP 136/85; PULSE 51; TEMP 97.3
--- NOTE | 2021-06-03 15:27 | NUR ---
Discharge instructions reviewed with patient and spouse, verbalized understanding. Discharged ambulatory to auto/home with spouse at 1430.
== END 2021-06-03 14:30 | disposition home or self-care (01) | DRG 309 ==
LOC: COL.ER 19:36 → ICU 20:59 → SURG 20:59 → ICU 05-25 23:00 → SURG 05-25 23:40
PROVIDERS: Emergency Medicine; Internal Medicine; Internal Medicine Infectious Disease; Internal Medicine Pulmonary Disease; Nurse Practitioner Family; Physician Assistant; ADMIT Student in an Organized Health Care Education/Training Program
PROC: 5A2204Z Restoration of Cardiac Rhythm, Single (ICD-10-PCS; 2021-05-25)
PROC: 0BBJ3ZX Excision of Left Lower Lung Lobe, Percutaneous Approach, Diagnostic (ICD-10-PCS; 2021-05-29)
PROC: 0BCB8ZZ Extirpation of Matter from Left Lower Lobe Bronchus, Via Natural or Artificial Opening Endoscopic (ICD-10-PCS; principal; 2021-05-29 08:00)
DX: I48.91 Unspecified atrial fibrillation (principal); E87.1 Hypo-osmolality and hyponatremia; F19.10 Other psychoactive substance abuse, uncomplicated; R74.01 Elevation of levels of liver transaminase levels; J44.9 Chronic obstructive pulmonary disease, unspecified; R21 Rash and other nonspecific skin eruption; D64.9 Anemia, unspecified; I10 Essential (primary) hypertension; R91.1 Solitary pulmonary nodule; R07.9 Chest pain, unspecified
CPT/HCPCS: 99223-AI; 99232-AI; 99233-AI; 99239; J0153; J0282; J0360; J0692; J1644; J1650; J1956; J2060; J2704; J2930; J3370; J3475; J7030; J7050; J7060; J7512; Q9967

== ENCOUNTER 2021-06-17 09:34 | Emergency (ER) | payer MEDICAID ==
[~2021-06-17] VITALS: Ht 182.9 cm; Wt 81.8 kg
[~2021-06-17 09:34] MED LIST changes: +CLEOCIN HCL300 MG PO; +CORDARONE200 MG/TAB PO; +ELIQUIS 5MG PO; +INCRUSE EL62.5 MCG/A IH; +LIDODERM 5% PATC1 EA TP; +MASON NATURAL2000 IU PO; +NORCO 325 MG-51 TAB PO; +PREDNISONE20 MG PO; +PROAIR HFA0.09 MG/AC IH; +VITAMIN D31000 I1 PO; +ZYRTEC 10MG10 MG PO
[2021-06-17 09:35] VITALS: TEMP 97.4
[2021-06-17 09:57] LABS: BASO % 0.2 % (0.0-2.0); EOS % 0.5 % (0-4.0); GRAN # 6.4 (1.4-6.5); GRAN % 75.3 % (42.2-75.2); HEMOGLOBIN 11.4 g/dl (13.5-18.0); LYMPH # 1.4 (1.2-3.4); LYMPH % 16.1 % (20.0-51.0); MEAN CELL VOLUME 89 fl (80.0-100.0); MEAN CORPUSCULAR HEMOGLOBIN 30 pg (27.0-31.0); MEAN CORPUSCULAR HGB CONC 34 g/dl (33.0-37.0); MEAN PLATELET VOLUME 8.1 fl (7.4-10.4); MONO # 0.6 (0.1-0.6); MONO % 7.3 % (1.7-9.3); PLATELET COUNT 344 K/mm3 (130-400); RED BLOOD COUNT 3.76 M/mm3 (4.20-5.60); REDCELL DISTRIBUTION WIDTH-CV 17.3 % (11.5-14.5)
[2021-06-17 10:01] LABS: ALANINE AMINOTRANSFERASE 34 U/L (4-49); ALBUMIN 4.1 gm/dL (3.5-5.0); ALKALINE PHOSPHATASE 108 U/L (50-136); ANION GAP 8 mmol/L (7-16); AST,SGOT 43 U/L (15-37); BILIRUBIN,TOTAL 0.2 mg/dL (0.0-1.0); BLOOD UREA NITROGEN 9 mg/dL (9-20); CALCIUM 9.3 mg/dL (8.4-10.2); CARBON DIOXIDE 24 mmol/L (22-30); CHLORIDE 97 mmol/L (98-107); CREATININE, serum 0.79 (0.66-1.25); GLUCOSE 117 mg/dL (74-106); PARTIAL THROMBOPLASTIN TIME 25.1 SECONDS (26.0-37.0); POTASSIUM 4.6 mmol/L (3.4-5.0); SODIUM 128 mmol/L (137-145); TOTAL PROTEIN 7.8 gm/dL (6.4-8.2)
[2021-06-17 10:02] LABS: HEMATOCRIT 33.4 % (42.0-52.0)
[2021-06-17 10:15] LABS: TROPONIN-I < 0.012 ng/mL (0.000-0.035)
[2021-06-17] MEDS ORDERED: ATIVAN 0.50.5 MG/TAB PO (11:01)
[2021-06-17 11:20] VITALS: BP 141/96; PULSE 93
== END 2021-06-17 11:20 | disposition home or self-care (01) ==
LOC: COL.ER 09:34
PROVIDERS: Family Medicine
DX: F41.9 Anxiety disorder, unspecified (principal); E86.0 Dehydration; C34.90 Malignant neoplasm of unspecified part of unspecified bronchus or lung; E87.1 Hypo-osmolality and hyponatremia; I10 Essential (primary) hypertension; Z79.899 Other long term (current) drug therapy
CPT/HCPCS: J2060; J7120

== ENCOUNTER → 2021-07-01 | Outpatient (CLI) | payer MEDICAID ==
[~2021-07-01] MED LIST changes: +ATIVAN 0.50.5 MG/TAB PO; +PROTONIX 40MG T40 MG PO
== END ==
LOC: COL.RAD 13:10
DX: C34.90 Malignant neoplasm of unspecified part of unspecified bronchus or lung (principal)
CPT/HCPCS: A9585

== ENCOUNTER → 2021-07-28 | Outpatient (CLI) | payer MEDICAID | LOC: COL.RAD 10:55 | DX: J98.4 Other disorders of lung (principal); C34.12 Malignant neoplasm of upper lobe, left bronchus or lung | CPT/HCPCS: Q9967 ==

== ENCOUNTER 2021-09-24 17:25 | Emergency (ER) | payer MEDICAID ==
[~2021-09-24] VITALS: Ht 182.9 cm; Wt 81.8 kg
[~2021-09-24 17:25] MED LIST changes: -PROTONIX 40MG T40 MG PO
[2021-09-24 17:34] VITALS: TEMP 98.2
[2021-09-24 19:04] LABS: GRAN # 5.5 K/mm3 (1.4-6.5); GRAN % 82.5 % (42.2-75.2); LYMPH # 0.3 K/mm3 (1.2-3.4); LYMPH % 3.7 % (20.0-51.0); MEAN CELL VOLUME 97 fl (80.0-100.0); MEAN CORPUSCULAR HEMOGLOBIN 33 pg (27.0-31.0); MEAN CORPUSCULAR HGB CONC 34 g/dl (33.0-37.0); MEAN PLATELET VOLUME 9.6 fl (7.4-10.4); MONO # 0.9 K/mm3 (0.1-0.6); MONO % 13.4 % (1.7-9.3); PLATELET COUNT 300 K/mm3 (130-400); RED BLOOD COUNT 3.01 M/mm3 (4.20-5.60); REDCELL DISTRIBUTION WIDTH-CV 18.5 % (11.5-14.5)
[2021-09-24 19:06] LABS: HEMATOCRIT 29.1 % (42.0-52.0)
[2021-09-24 19:14] LABS: ALBUMIN 3.9 gm/dL (3.5-5.0); BILIRUBIN,TOTAL 0.3 mg/dL (0.2-1.2); CALCIUM 10.4 mg/dL (8.4-10.2); POTASSIUM 4.1 mmol/L (3.5-4.5); TOTAL PROTEIN 8.3 gm/dL (6.2-8.1)
[2021-09-24] MEDS ORDERED: PROTONIX 40MG T40 MG PO (20:06)
[2021-09-24 20:20] VITALS: BP 151/98; PULSE 72
== END 2021-09-24 20:20 | disposition home or self-care (01) ==
LOC: COL.ER 17:25
PROVIDERS: Physician Assistant
DX: C34.30 Malignant neoplasm of lower lobe, unspecified bronchus or lung (principal); I10 Essential (primary) hypertension; I48.91 Unspecified atrial fibrillation; Z79.01 Long term (current) use of anticoagulants; Z79.899 Other long term (current) drug therapy
CPT/HCPCS: C9113; J2270; J2405; J7030

== ENCOUNTER 2021-10-14 09:33 | Day surgery (SDC) | payer MEDICAID ==
[~2021-10-14] VITALS: Ht 182.9 cm; Wt 83.9 kg
[~2021-10-14 09:33] MED LIST changes: +PROTONIX 40MG T40 MG PO
[2021-10-14] MEDS ORDERED: ZOFRAN8 MG PO (10:46)
[2021-10-14] MEDS ORDERED: SPIRIVA RE2.5 MCG/Ac IH (10:47)
[2021-10-14] MEDS ORDERED: NEURONTIN300 MG/CAP PO (10:47)
[2021-10-14] MEDS ORDERED: MOTRIN 800800 MG/TAB PO (10:48)
[2021-10-14] MEDS ORDERED: PRILOSEC 20MG20 MG PO (10:48)
[2021-10-14 10:55] VITALS: BP 126/97; PULSE 110; TEMP 97.9
[2021-10-14 11:45] VITALS: BP 113/82; PULSE 104; TEMP 97.6
--- NOTE | 2021-10-14 11:45 | NUR ---
Pt to [place] [facility], ambulates easily to recliner, warm blankets provided. Pt awake and alert and denies pain or nausea, given sprite and applesauce. Call light in reach.
[2021-10-14 12:00] VITALS: BP 112/70; PULSE 101
--- NOTE | 2021-10-14 12:10 | NUR ---
Dr. Benites talks with pt. Pt denies pain or nausea. Discharge instructions provided and IV discontinued. Pt taken out via private car and left in care of his mom at 1224.
== END 2021-10-14 12:24 | disposition home or self-care (01) ==
LOC: SDCO 09:33
DX: K22.10 Ulcer of esophagus without bleeding (principal); K21.00 Gastro-esophageal reflux disease with esophagitis, without bleeding; K44.9 Diaphragmatic hernia without obstruction or gangrene; R07.9 Chest pain, unspecified; R13.10 Dysphagia, unspecified; D64.9 Anemia, unspecified; I48.91 Unspecified atrial fibrillation; I11.0 Hypertensive heart disease with heart failure; I50.9 Heart failure, unspecified; F41.9 Anxiety disorder, unspecified; F17.210 Nicotine dependence, cigarettes, uncomplicated; Z85.828 Personal history of other malignant neoplasm of skin; Z85.118 Personal history of other malignant neoplasm of bronchus and lung; Z92.21 Personal history of antineoplastic chemotherapy; Z92.3 Personal history of irradiation; Z79.899 Other long term (current) drug therapy; Z90.89 Acquired absence of other organs
CPT/HCPCS: J2704; J7030

== ENCOUNTER → 2021-11-11 | Outpatient (CLI) | payer MEDICAID ==
[~2021-11-11] MED LIST changes: +MOTRIN 800800 MG/TAB PO; +NEURONTIN300 MG/CAP PO; +PRILOSEC 20MG20 MG PO; +SPIRIVA RE2.5 MCG/Ac IH
== END ==
LOC: COL.RAD 11-04 10:00
DX: C34.12 Malignant neoplasm of upper lobe, left bronchus or lung (principal); J90 Pleural effusion, not elsewhere classified

== ENCOUNTER → 2021-12-22 | Outpatient (CLI) | payer MEDICAID | LOC: COL.CARD 07:29 | DX: R00.2 Palpitations (principal) ==

== ENCOUNTER 2022-01-21 20:10 | Inpatient (IN) | payer MEDICAID ==
[~2022-01-21] VITALS: Ht 182.9 cm; Wt 83.7 kg
[2022-01-21 21:09] LABS: BASO % 0.7 % (0.0-2.0); EOS # 0.2 K/mm3 (0.0-0.7); EOS % 4.4 % (0.0-4.0); GRAN # 3.1 K/mm3 (1.4-6.5); GRAN % 67.9 % (42.2-75.2); HEMOGLOBIN 12.8 g/dl (13.5-18.0); LYMPH # 0.8 K/mm3 (1.2-3.4); LYMPH % 18.4 % (20.0-51.0); MEAN CELL VOLUME 95 fl (80.0-100.0); MEAN CORPUSCULAR HEMOGLOBIN 35 pg (27-31); MEAN CORPUSCULAR HGB CONC 36 g/dl (33.0-37.0); MEAN PLATELET VOLUME 8.9 fl (7.4-10.4); MONO # 0.4 K/mm3 (0.1-0.6); MONO % 8.2 % (1.7-9.3); PLATELET COUNT 211 K/mm3 (130-400); REDCELL DISTRIBUTION WIDTH-CV 12.7 % (11.5-14.5)
[2022-01-21 21:11] LABS: HEMATOCRIT 35.2 % (42.0-52.0)
[2022-01-21 21:26] LABS: ALANINE AMINOTRANSFERASE 31 U/L (0-55); ALBUMIN 3.7 gm/dL (3.5-5.0); ALKALINE PHOSPHATASE 104 U/L (40-150); ANION GAP 13 mmol/L (7-16); AST,SGOT 32 U/L (5-34); BILIRUBIN,TOTAL 0.3 mg/dL (0.2-1.2); BLOOD UREA NITROGEN 4 mg/dL (9-21); CARBON DIOXIDE 17 mmol/L (22-29); CHLORIDE 91 mmol/L (98-107); CREATININE, serum 0.99 mg/dL (0.72-1.25); GLUCOSE 77 mg/dL (70-99); POTASSIUM 3.8 mmol/L (3.5-4.5); SODIUM 121 mmol/L (136-145); TOTAL PROTEIN 8.3 gm/dL (6.2-8.1)
[2022-01-21 21:32] LABS: TROPONIN-I < 0.010 ng/mL (0.00-0.033)
[2022-01-21] MEDS ORDERED: TOPROL XL 25MG25 MG PO (22:54)
[2022-01-21] MEDS ORDERED: KLONOPIN 1MG1 MG PO (22:54)
[2022-01-21] MEDS ORDERED: NEURONTIN300 MG/CAP PO (22:55)
[2022-01-22 02:57] LABS: MAGNESIUM 1.3 mg/dL (1.6-2.6); PHOSPHOROUS 3.6 mg/dL (2.3-4.7)
[2022-01-22 03:17] LABS: THYROID STIMULATING HORMONE 2.899 uIU/mL (0.350-4.940)
[2022-01-22 04:19] VITALS: BP 107/71; PULSE 80; TEMP 97.3
--- NOTE | 2022-01-22 05:30 | NUR ---
PT ARRIVED TO THE MEDICAL FLOOR AROUND 0130HRS TO ROOM 352. PT A&O X 4; VSS; O2 RA. PT COMPLAINED OF FACIAL PAIN AND LATER OF FACIAL PAIN THAT RADIATED DOWN HIS NECK TO HIS UPPER CHEST. PT GIVEN ULTRAM FOR PAIN. PT FELT PAIN WAS NOT RELIEVED. HOSPITALIST CALLED. HOSPITALIST GAVE OK TO GIVE SECOND DOSE OF ULTRAM EARLY. SECOND DOSE GIVEN. PT FELT PAIN WAS MUCH MORE MANAGEABLE. PT DENIED PALPITATIONS, N,V,D, SOB OR DIZZINESS. ADMISSIONS ASSESSMENT AND MED REC COMPLETE POSSIBLE.(NOTE: ADULT ADMISSION INTAKE PORTION FROZE AND MED REC COMPLETED BY HOSPITALIST AND .) PT ORIENTED TO ROOM AND HOSPITAL POLICY. POC DISCUSSED WITH PT. PT VERBALIZED UNDERSTANDING. ALL QUESTIONS AND CONCERNS ADDRESSED. PT EXPRESSED NO OTHER NEEDS AT THIS. CALL LIGHT WITHIN REACH.
[2022-01-22 07:55] VITALS: BP 114/73; PULSE 94; TEMP 97.3
--- NOTE | 2022-01-22 08:31 | NUR ---
Pt assessment complete. Pt is laying in bed upon entry, he is A/O x4. His breathing is even and unlabored on RA. Pt reports much improvement from last night. Reports facial pain has improved. Denies N/T. Reports chronic diarrhea. IVF infusing without issues. No needs at this time.
[2022-01-22 08:55] LABS: HEMOGLOBIN 12.6 g/dl (13.5-18.0); MEAN CELL VOLUME 96 fl (80.0-100.0); MEAN CORPUSCULAR HEMOGLOBIN 34 pg (27-31); MEAN CORPUSCULAR HGB CONC 35 g/dl (33.0-37.0); MEAN PLATELET VOLUME 8.9 fl (7.4-10.4); PLATELET COUNT 227 K/mm3 (130-400); RED BLOOD COUNT 3.73 M/mm3 (4.20-5.60); REDCELL DISTRIBUTION WIDTH-CV 12.8 % (11.5-14.5)
[2022-01-22 09:01] LABS: HEMATOCRIT 35.7 % (42.0-52.0)
[2022-01-22 09:08] LABS: CALCIUM 9.2 mg/dL (8.4-10.2); CREATININE, serum 1.04 mg/dL (0.72-1.25); MAGNESIUM 2.1 mg/dL (1.6-2.6); POTASSIUM 4.3 mmol/L (3.5-4.5)
--- NOTE | 2022-01-22 09:40 | NUR ---
Initial visit; Patient thanked Coin Machine Supervisor for looking in on him and offering God's blessings and to keep him in Coin Machine Supervisor's prayers.
--- NOTE | 2022-01-22 09:49 | NUR ---
Director Of Accounting met with patient to discuss discharge planning. Patient lives in [place] with his life partner, Vivian (ph#[phone]) and his step child. Patient sees Dr. Quintero for primary care and also sees Dr. Barnes, Oncologist. Patient obtains [facility] from [facility] and does not use any DME. Patient is independent with ADLS and plans to return home at time of discharge. Patient does not currently have Advance Directives but was interested in obtaining DPOA-HC form. SW provided. SW spoke with patient about establishing legal next of kin. Patient advised that he and Vivian are not legally . Patient has one biological child, Phani Truong (ph#[phone]). SW advised patient that Phani is his legal next of kin and would be the decision maker for patient if patient were unable to make his own medical decisions. Patient verbalized understanding. Discharge Plan: Home
[2022-01-22 09:53] LABS: BAND 11 % (0-10); LYMPHOCYTE 4 % (20.0-51.0); NEUTROPHILS 83 % (42.0-75.2); PLATELET ESTIMATE NORMAL (NORMAL)
[2022-01-22 11:38] VITALS: BP 117/77; PULSE 87; TEMP 97.4
[2022-01-22 12:15] LABS: OSMOLALITY-URINE random 121 Osm/kg (50-1200)
[2022-01-22 16:33] VITALS: BP 121/83; PULSE 99; TEMP 97.4
[2022-01-22 20:27] VITALS: BP 140/83; PULSE 132; TEMP 97.1
[2022-01-23 00:09] VITALS: BP 122/84; PULSE 108; TEMP 97.5
[2022-01-23 04:22] VITALS: BP 125/89; PULSE 87; TEMP 97.8
--- NOTE | 2022-01-23 06:15 | NUR ---
ASSESSMENT COMPLETE FOR THIS SHIFT. PT STRESSED IN BED, IN PAIN. PT COMPLAINED OF GENERALIZED PAIN HE RATED A 10. PT GIVEN ULTRAM FOR PAIN. PT FELT THE ULTRAM DID NOT TOUCH HIS PAIN. HOSPITALIST CALLED. MORPHINE ORDERED AND GIVEN. PT FELT PAIN WAS RELIEVED WITH MORPHINE. I ENCOURAGED PT TO NOT WAIT UNTIL HIS PAIN WAS A TEN BEFORE ASKING FOR PAIN MEDICATION. PT AGREED. PT ALSO HAD AN ELEVATED HR IN THE 130'S DUE TO PAIN. HOSPITALIST INFORMED. PT'S HR RETURNED TO HIS NORMAL WITH PAIN MANAGEMENT. PT DENIED N,V,D, SOB OR DIZZINESS. PT EXPRESSED NO OTHER NEEDS AT THIS TIME. CALL LIGHT WITHIN REACH.
[2022-01-23 06:24] LABS: HEMOGLOBIN 11.1 g/dl (13.5-18.0); MEAN CELL VOLUME 100 fl (80.0-100.0); MEAN CORPUSCULAR HEMOGLOBIN 34 pg (27-31); MEAN CORPUSCULAR HGB CONC 34 g/dl (33.0-37.0); MEAN PLATELET VOLUME 9.4 fl (7.4-10.4); PLATELET COUNT 217 K/mm3 (130-400); RED BLOOD COUNT 3.25 M/mm3 (4.20-5.60)
[2022-01-23 06:32] LABS: CREATININE, serum 0.94 mg/dL (0.72-1.25); HEMATOCRIT 32.4 % (42.0-52.0); MAGNESIUM 1.9 mg/dL (1.6-2.6); POTASSIUM 4.3 mmol/L (3.5-4.5)
[2022-01-23 07:05] LABS: BAND 6 % (0-10); LYMPHOCYTE 6 % (20.0-51.0); NEUTROPHILS 86 % (42.0-75.2); PLATELET ESTIMATE NORMAL (NORMAL)
[2022-01-23 07:48] VITALS: BP 137/92; BP 142/94; PULSE 83; TEMP 97.8
--- NOTE | 2022-01-23 08:45 | NUR ---
PT SITTING UP IN BED ON ROOM AIR. PT STATES THAT HE IS HAVING A LITTLE BIT OF PAIN IN HIS FACE BUT DOES NOT WANT ANYTHING FOR PAIN "UNTIL AROUND 11." PT STATES NO OTHER NEEDS AT THIS TIME. CALL LIGHT IS WITHIN REACH.
[2022-01-23] MEDS ORDERED: CEFTIN500 MG PO (10:18)
[2022-01-23] MEDS ORDERED: ROXICODONE 55 MG/TAB PO (10:20)
[2022-01-23] MEDS ORDERED: PREDNISONE10 MG PO (10:20)
[2022-01-23] MEDS ORDERED: NYSTATIN OR100 MU/ML PO (10:22)
[2022-01-23 12:10] VITALS: BP 137/91; PULSE 103; TEMP 97.8
== END 2022-01-23 12:20 | disposition home or self-care (01) | DRG 206 ==
LOC: COL.ER 20:10 → MEDICAL 23:02
PROVIDERS: Emergency Medicine; Nurse Practitioner Family; Physician Assistant; ADMIT Internal Medicine
DX: J70.0 Acute pulmonary manifestations due to radiation (principal); E87.1 Hypo-osmolality and hyponatremia; E87.2 Acidosis; B37.0 Candidal stomatitis; C34.90 Malignant neoplasm of unspecified part of unspecified bronchus or lung; J44.0 Chronic obstructive pulmonary disease with (acute) lower respiratory infection; J18.9 Pneumonia, unspecified organism; F17.210 Nicotine dependence, cigarettes, uncomplicated; I48.91 Unspecified atrial fibrillation; M32.9 Systemic lupus erythematosus, unspecified; I10 Essential (primary) hypertension; D64.9 Anemia, unspecified; E87.8 Other disorders of electrolyte and fluid balance, not elsewhere classified; F10.10 Alcohol abuse, uncomplicated; F12.10 Cannabis abuse, uncomplicated; E83.42 Hypomagnesemia; R51.9 Headache, unspecified; T66.XXXA Radiation sickness, unspecified, initial encounter; Z88.8 Allergy status to other drugs, medicaments and biological substances; Z88.0 Allergy status to penicillin; Z91.013 Allergy to seafood; Z23 Encounter for immunization
CPT/HCPCS: 99223-AI; 99232-AI; 99239; J0456; J0696; J1790; J2270; J2920; J2930; J3475; J7030; J7050; Q9967

== ENCOUNTER 2022-02-14 06:56 | Emergency (ER) | payer MEDICAID ==
[~2022-02-14] VITALS: Ht 182.9 cm; Wt 85.0 kg
[~2022-02-14 06:56] MED LIST changes: +CEFTIN500 MG PO; +KLONOPIN 1MG1 MG PO; +NYSTATIN OR100 MU/ML PO; +PREDNISONE10 MG PO; +ROXICODONE 55 MG/TAB PO; +TOPROL XL 25MG25 MG PO
[2022-02-14 07:04] VITALS: TEMP 99.1
[2022-02-14] MEDS ORDERED: PAMELOR 25MG25 MG PO (07:36)
[2022-02-14] MEDS ORDERED: CYMBALTA 20MG20 MG PO (07:36)
[2022-02-14] MEDS ORDERED: ZESTRIL 20MG TA20 MG PO (07:39)
[2022-02-14] MEDS ORDERED: NEURONTIN300 MG/CAP PO (07:40)
[2022-02-14] MEDS ORDERED: TRIAM OI 15 0.025 TOP (07:41)
[2022-02-14] MEDS ORDERED: VALTREX1 GM PO (08:04)
[2022-02-14] MEDS ORDERED: NORCO 325 MG-51 TAB PO (08:04)
[2022-02-14 08:36] VITALS: BP 136/99; PULSE 117
== END 2022-02-14 08:43 | disposition home or self-care (01) ==
LOC: COL.ER 06:56
DX: B02.30 Zoster ocular disease, unspecified (principal); F17.200 Nicotine dependence, unspecified, uncomplicated

== ENCOUNTER → 2022-02-24 | Outpatient (CLI) | payer MEDICAID ==
[~2022-02-24] MED LIST changes: +CYMBALTA 20MG20 MG PO; +LEVAQUIN 750MG750 M1 PO; +LYRICA 150MG C150 MG; +PAMELOR 25MG25 MG PO; +PERCOCET 325 MG1 TA2 PO; +PROTONIX 40MG T40 MG; +TRIAM OI 15 0.025 TOP; +VALTREX1 GM PO
== END ==
LOC: COL.RAD 09:49
DX: C34.90 Malignant neoplasm of unspecified part of unspecified bronchus or lung (principal); J18.1 Lobar pneumonia, unspecified organism; J98.4 Other disorders of lung
CPT/HCPCS: Q9967

== ENCOUNTER 2022-03-03 19:37 | Emergency (ER) | payer MEDICAID ==
[~2022-03-03] VITALS: Ht 182.9 cm; Wt 79.1 kg
[~2022-03-03 19:37] MED LIST changes: -LEVAQUIN 750MG750 M1 PO; -LYRICA 150MG C150 MG; -PERCOCET 325 MG1 TA2 PO; -PROTONIX 40MG T40 MG
[2022-03-03 19:48] VITALS: TEMP 97.8
[2022-03-03 21:00] LABS: BASO % 0.2 % (0.0-2.0); EOS % 0.7 % (0.0-4.0); GRAN # 3.9 K/mm3 (1.4-6.5); GRAN % 71.3 % (42.2-75.2); HEMOGLOBIN 12.8 g/dl (13.5-18.0); LYMPH # 0.8 K/mm3 (1.2-3.4); LYMPH % 15.2 % (20.0-51.0); MEAN CELL VOLUME 98 fl (80.0-100.0); MEAN CORPUSCULAR HEMOGLOBIN 35 pg (27-31); MEAN CORPUSCULAR HGB CONC 36 g/dl (33.0-37.0); MEAN PLATELET VOLUME 9.3 fl (7.4-10.4); MONO # 0.7 K/mm3 (0.1-0.6); MONO % 12.1 % (1.7-9.3); PLATELET COUNT 112 K/mm3 (130-400); RED BLOOD COUNT 3.65 M/mm3 (4.20-5.60); REDCELL DISTRIBUTION WIDTH-CV 14.6 % (11.5-14.5)
[2022-03-03 21:02] LABS: HEMATOCRIT 35.9 % (42.0-52.0)
[2022-03-03 21:19] LABS: ALBUMIN 3.1 gm/dL (3.5-5.0); BILIRUBIN,TOTAL 0.3 mg/dL (0.2-1.2); C-REACTIVE PROTEIN 1.47 mg/dL (0.00-0.50); CALCIUM 8.4 mg/dL (8.4-10.2); CREATININE, serum 0.73 mg/dL (0.72-1.25); TOTAL PROTEIN 7.4 gm/dL (6.2-8.1)
[2022-03-03] MEDS ORDERED: PERCOCET 325 MG1 TA2 PO (22:30)
[2022-03-03 22:57] VITALS: BP 154/78; PULSE 76
== END 2022-03-03 22:57 | disposition home or self-care (01) ==
LOC: COL.ER 19:37
PROVIDERS: Family Medicine
DX: B02.29 Other postherpetic nervous system involvement (principal); Z87.891 Personal history of nicotine dependence; Z20.822 Contact with and (suspected) exposure to COVID-19
CPT/HCPCS: J1170; J2405; J7120

== ENCOUNTER 2022-03-16 10:01 | Inpatient (IN) | payer MEDICAID ==
[~2022-03-16] VITALS: Ht 182.9 cm; Wt 82.6 kg
[~2022-03-16 10:01] MED LIST changes: +PERCOCET 325 MG1 TA2 PO
[2022-03-16 11:11] LABS: COLLECTION METHOD CLEAN CATCH
[2022-03-16 11:18] LABS: MUCOUS Present (NOT PRESENT); PH 7 (5-8); SQUAMOUS EPITHELIAL None Seen /hpf (0-10); URINE APPEARANCE Clear (CLEAR/HAZY); URINE BACTERIA Rare /hpf (NONE SEEN); URINE BILIRUBIN Negative (NEGATIVE); URINE BLOOD Negative (NEGATIVE); URINE COLOR Yellow (YELLOW); URINE GLUCOSE Negative (NEGATIVE); URINE KETONE Negative (NEGATIVE); URINE LEUKOCYTE ESTERASE Negative (NEGATIVE); URINE NITRATE Negative (NEGATIVE); URINE PROTEIN(semi-quant) Negative (NEGATIVE); URINE RBC 0-2 /hpf (0-2); URINE UROBILINOGEN Negative (NEGATIVE)
[2022-03-16 12:51] LABS: BASO % 0.3 % (0.0-2.0); EOS # 0.1 K/mm3 (0.0-0.7); EOS % 0.7 % (0.0-4.0); GRAN # 5.9 K/mm3 (1.4-6.5); GRAN % 80.5 % (42.2-75.2); HEMATOCRIT 42.5 % (42.0-52.0); HEMOGLOBIN 14.4 g/dl (13.5-18.0); LYMPH # 0.6 K/mm3 (1.2-3.4); LYMPH % 8.6 % (20.0-51.0); MEAN CELL VOLUME 102 fl (80.0-100.0); MEAN CORPUSCULAR HEMOGLOBIN 35 pg (27-31); MEAN CORPUSCULAR HGB CONC 34 g/dl (33.0-37.0); MEAN PLATELET VOLUME 10.8 fl (7.4-10.4); MONO # 0.7 K/mm3 (0.1-0.6); MONO % 9.5 % (1.7-9.3); PLATELET COUNT 116 K/mm3 (130-400); RED BLOOD COUNT 4.16 M/mm3 (4.20-5.60); REDCELL DISTRIBUTION WIDTH-CV 14.9 % (11.5-14.5)
[2022-03-16 13:08] LABS: ALBUMIN 3.1 gm/dL (3.5-5.0); BILIRUBIN,TOTAL 0.5 mg/dL (0.2-1.2); C-REACTIVE PROTEIN 5.93 mg/dL (0.00-0.50); CALCIUM 9.2 mg/dL (8.4-10.2); CREATININE, serum 0.9 mg/dL (0.72-1.25); POTASSIUM 4.1 mmol/L (3.5-4.5); TOTAL PROTEIN 8.2 gm/dL (6.2-8.1)
[2022-03-16] MEDS ORDERED: LYRICA 150MG C150 MG (15:56)
[2022-03-16] MEDS ORDERED: PROTONIX 40MG T40 MG (16:01)
[2022-03-16 16:38] VITALS: BP 137/91; PULSE 92; TEMP 97.6
[2022-03-16 16:57] LABS: LIPASE 41 U/L (8-78)
--- NOTE | 2022-03-16 17:05 | NUR ---
Arrived to room 358 from ED. Oriented to room and policy. Admission assessment complete. A&Ox4. Denies nausea/shortness of breath. Pain to left ribs-ratig pain 4/10 on pain scale. INT to right hand flushes without difficulty. Noted to have crusting shingles to right side of head. Plan of care discussed for this shift to include meds/calling for questions/concerns. Verbalizes understanding. Call light in reach. Will monitor.
[2022-03-16 17:07] LABS: TROPONIN-I < 0.010 ng/mL (0.00-0.033)
[2022-03-16 17:47] LABS: INR 1.6 (0.8-3.0); PROTHROMBIN TIME 18.9 SECONDS (9.7-12.8)
[2022-03-16 18:19] VITALS: BP 116/80; PULSE 95; TEMP 98.2
--- NOTE | 2022-03-16 20:30 | NUR ---
Initial shift assessment done- rates his right rib pain 10/10,,will give the Morphine as ordered, has been resting on and off-- understnds needs a sputum specimen, cup at bedside. Tele on,
[2022-03-16 20:32] VITALS: BP 110/73; PULSE 92; TEMP 98.1
[2022-03-16 22:53] VITALS: BP 135/68; PULSE 93; TEMP 98
[2022-03-17] VITALS (12 sets, daily range): BP systolic 105–121; BP diastolic 69–89; PULSE 44–103; TEMP 97.5–98.7
--- NOTE | 2022-03-17 02:25 | NUR ---
O2 sats 90% on RA, put on o2 at 2L/nc at this time.Resting comfortably-
--- NOTE | 2022-03-17 05:28 | NUR ---
O2 sats 93-94% on the 2L/nc, patient states he feels better with the o2 on. Has been resting most of the night. Did get Morphine IV x3 for right rib /chest pain this shift.
[2022-03-17 06:31] LABS: BASO % 0.2 % (0.0-2.0); EOS # 0.1 K/mm3 (0.0-0.7); EOS % 1.2 % (0.0-4.0); GRAN # 3.8 K/mm3 (1.4-6.5); GRAN % 76.2 % (42.2-75.2); LYMPH # 0.6 K/mm3 (1.2-3.4); LYMPH % 11.5 % (20.0-51.0); MEAN CELL VOLUME 101 fl (80.0-100.0); MEAN CORPUSCULAR HGB CONC 34 g/dl (33.0-37.0); MEAN PLATELET VOLUME 10.8 fl (7.4-10.4); MONO # 0.5 K/mm3 (0.1-0.6); MONO % 10.5 % (1.7-9.3); PLATELET COUNT 93 K/mm3 (130-400); RED BLOOD COUNT 3.26 M/mm3 (4.20-5.60)
[2022-03-17 06:38] LABS: ALBUMIN 2.4 gm/dL (3.5-5.0); BILIRUBIN,TOTAL 0.5 mg/dL (0.2-1.2); CALCIUM 8.6 mg/dL (8.4-10.2); CREATININE, serum 0.83 mg/dL (0.72-1.25); POTASSIUM 3.9 mmol/L (3.5-4.5); TOTAL PROTEIN 6.4 gm/dL (6.2-8.1)
[2022-03-17 06:39] LABS: HEMOGLOBIN 11.3 g/dl (13.5-18.0); MEAN CORPUSCULAR HEMOGLOBIN 35 pg (27-31)
[2022-03-17 06:40] LABS: HEMATOCRIT 32.9 % (42.0-52.0)
--- NOTE | 2022-03-17 10:17 | NUR ---
PATIENT ALERT AND ORIENTED X3. PERCOCET FOR PAIN. IV ANTIBIOTICS. NO NEW CONCERNS.
--- NOTE | 2022-03-17 13:31 | NUR ---
SW met with patient to complete intake and discuss discharge plan. Patient reports that he lives at home with his Nini ([phone]) in [place]. Patient reports to being fully independent with his ADL's and does not utilize any DME to assist with mobility. Patient has no home oxygen needs. PCP Is Dr. Quintero and he utilizes [facility] for perscription needs with no cost difficulty. Patient reports that he has no services coming into the home at this time. He denies having a DPOA-HC established. Patient is planning on returning home once medically ready. Discharge plan: Home
[2022-03-18 03:15] VITALS: BP 122/87; PULSE 86; TEMP 97.3
--- NOTE | 2022-03-18 05:48 | NUR ---
RESTED THROUGH THE NIGHT WITHOUT INCIDENT. NEEDS MET.
[2022-03-18 07:26] VITALS: BP 112/94; PULSE 88; TEMP 97.8
--- NOTE | 2022-03-18 08:57 | NUR ---
PATIENT ALERT AND ORIENTED X3. NO NEW CONCERNS. PRN PERCOCET GIVEN FOR PAIN.
--- NOTE | 2022-03-18 10:02 | NUR ---
Initial visit; Patient thanked Bicycle I Assembler for looking in on him and shared that he is in pain and appears very uncomfortable. B[employer]cle I As[employer]er offered God's blessings and will keep Fredrick in her prayers. Bicycle I Assembler will follow-up.
[2022-03-18 11:46] VITALS: BP 109/83; PULSE 88; TEMP 97.9
[2022-03-18] MEDS ORDERED: LEVAQUIN 750MG750 M1 PO (12:24)
== END 2022-03-18 14:39 | disposition home or self-care (01) | DRG 194 ==
LOC: COL.ER 10:01 → MEDICAL 14:08
PROVIDERS: Family Medicine; Physician Assistant; ADMIT Student in an Organized Health Care Education/Training Program
DX: J18.9 Pneumonia, unspecified organism (principal); C34.32 Malignant neoplasm of lower lobe, left bronchus or lung; B02.30 Zoster ocular disease, unspecified; I10 Essential (primary) hypertension; I48.91 Unspecified atrial fibrillation; K21.9 Gastro-esophageal reflux disease without esophagitis; D69.6 Thrombocytopenia, unspecified; M32.9 Systemic lupus erythematosus, unspecified; K59.00 Constipation, unspecified; D64.9 Anemia, unspecified; F17.210 Nicotine dependence, cigarettes, uncomplicated; Z20.822 Contact with and (suspected) exposure to COVID-19
CPT/HCPCS: OP; 99222-AI; 99232-AI; 99233-AI; 99239; G0378; J0696; J1170; J2270; J2543; J7030; Q9967